=== PATIENT | female | born 1995 | race African-American/Black ===

== ENCOUNTER 2018-02-10 16:45 | Emergency (ER) | payer OTHER ==
[~2018-02-10] VITALS: Ht 152.4 cm; Wt 50.3 kg
[2018-02-10 16:45] VITALS: BP_SYST 110
[2018-02-10] MEDS ORDERED: MAG HYDROX/AL HYDROX/SIMETH 30 ML, BELLADONNA ALKALOIDS/PHENOBARB 10 ML, LIDOCAINE VISC... PO ONE ×3 (17:15)
[2018-02-10 17:43] VITALS: BP_SYST 113
== END 2018-02-10 17:43 | disposition home or self-care (01) ==
LOC: SED 16:45
DX: N39.0 Urinary tract infection, site not specified (principal); R10.13 Epigastric pain; J45.909 Unspecified asthma, uncomplicated; F17.210 Nicotine dependence, cigarettes, uncomplicated
CPT/HCPCS: 81025; 99283; J2001

== ENCOUNTER 2019-09-11 17:44 | Emergency (ER) | payer OTHER ==
[~2019-09-11] VITALS: Ht 149.9 cm; Wt 49.9 kg
[2019-09-11 17:56] VITALS: BP_SYST 113
--- NOTE | 2019-09-11 18:00 | NUR ---
Patient to ER bed 7 to gown for evaluation. Side rails up. ASSUMED CARE OF PT.
--- NOTE | 2019-09-11 18:04 | NUR ---
ER Dr. ALMODOVAR at bedside examining patient.
[2019-09-11 18:27] LABS: BASOPHILS # (AUTO) 0.1 K/uL (0.0-0.2); BASOPHILS % (AUTO) 0.6 % (0.0-2.0); EOSINOPHILS # (AUTO) 0.2 K/uL (0.0-0.4); EOSINOPHILS % (AUTO) 2.1 % (0.0-4.0); HEMATOCRIT 40.8 % (36-48); HEMOGLOBIN 13.6 g/dL (12.0-16.0); LYMPHOCYTES # (AUTO) 2.2 K/uL (1.0-5.5); LYMPHOCYTES % (AUTO) 23.4 % (20.5-51.5); MEAN CORPUSCULAR HEMOGLOBIN 34 pg (27-31); MEAN CORPUSCULAR HGB CONC 33 % (32-36); MEAN CORPUSCULAR VOLUME 102 fL (79.0-98.0); MONOCYTES # (AUTO) 0.7 K/uL (0.0-1.0); MONOCYTES % (AUTO) 7.1 % (1.7-9.3); NEUTROPHILS # (AUTO) 6.4 K/uL (1.8-7.7); NEUTROPHILS % (AUTO) 66.8 % (40.0-70.0); PLATELET COUNT (AUTO) 390 K/uL (130-430); RED CELL DISTRIBUTION WIDTH 13.5 % (9.0-15.0); WHITE BLOOD COUNT (AUTO) 9.5 K/uL (4.8-10.8)
[2019-09-11 18:45] LABS: BILIRUBIN,URINE 1+ (NEGATIVE); BLOOD, URINE 3+ (NEGATIVE); CLARITY/URINE CLOUDY (CLEAR); COLOR,URINE YELLOW (YELLOW); GLUCOSE,URINE NEGATIVE (NEGATIVE); KETONES,URINE TRACE (NEGATIVE); LEUKOCYTE ESTERASE ,URINE 2+ (NEGATIVE); NITRITE, URINE NEGATIVE (NEGATIVE); PROTEIN URINE 1+ (NEGATIVE)
[2019-09-11 18:55] LABS: BACTERIA,URINE MANY /HPF (None Seen); RBC,URINE >100 /HPF (0-3); WBC,URINE >100 /HPF (0-3)
[2019-09-11 18:56] LABS: URINE AMORPHOUS PHOSPHATES 3+ /HPF (None Seen)
[2019-09-11 18:57] LABS: CALCIUM 8.5 mg/dL (8.4-11.0); CREATININE 1.42 mg/dL (0.55-1.30); POTASSIUM 3.7 mmol/L (3.5-5.1)
--- NOTE | 2019-09-11 19:00 | NUR ---
PT AAO AND AMBULATORY C/O PELVIC PAIN X 1 WEEK AND PT REPORTS IT INTERMITTENT PAIN.
[2019-09-11 19:02] LABS: TOTAL BILIRUBIN 0.3 mg/dL (0.0-1.0)
--- NOTE | 2019-09-11 19:15 | NUR ---
ASSISTED DR. ALMODOVAR WITH PELVIC EXAM. CULTURES AND WET MOUNT SENT. PT TOLERATED PROCEDURE WELL.
[2019-09-11] MEDS ORDERED: AZITHROMYCIN 250 MG TABLET PO ONE (19:30)
[2019-09-11] MEDS ORDERED: cefTRIAXone 1 GM IVPB PREMIX 50 ML IV ONE (19:30)
--- NOTE | 2019-09-11 20:45 | NUR ---
ER at bedside Re-examining patient.
[2019-09-11] MEDS ORDERED: ONDANSETRON HCL 4 MG/2 ML VIAL IVP ONE (21:15)
[2019-09-11] MEDS ORDERED: ONDANSETRON 4 MG ODT TAB PO ONE (21:15)
[2019-09-11 21:30] VITALS: BP_SYST 118
--- NOTE | 2019-09-11 21:30 | NUR ---
Patient given written and verbal discharge instructions and verbalizes understanding. DR. MISSAEL WEINBERG MD discussed with patient the results and treatment provided. Patient in stable condition. ID arm band removed. IV catheter removed intact and dressing applied, no active bleeding. Rx of ANTIBIOTICS given. Patient educated on pain management and to follow up with PMD. Pain Scale 0/10. Opportunity for questions provided and answered. Medication side effect fact sheet provided.
== END 2019-09-11 21:30 | disposition home or self-care (01) ==
LOC: SED 17:44
DX: N39.0 Urinary tract infection, site not specified (principal); N28.9 Disorder of kidney and ureter, unspecified; Z11.3 Encounter for screening for infections with a predominantly sexual mode of transmission
CPT/HCPCS: 36415; 80053; 81000; 81025; 83605; 85025; 87040; 87086; 87210; 87491; 87591; 96365; 96375; 99284; J0696; J2405; Q0144